=== PATIENT | male | born 1940 | race Caucasian/White ===

== ENCOUNTER → 2016-12-07 | Outpatient (CLI) | payer MEDICARE, OTHER ==
[~2016-12-07] MED LIST: AMLO10TA PO; ASPI-892 PO; CODE-54 PO; CPR250T PO; CYAN100053 IM; FISH OIL 1,2001 EAC1 PO; FURO40TA4 PO; HCT25T PO; MELO-198 PO; METF500T8 PO; NFNEB10T PO; ROSU10TA12 PO; TELM40TA PO
--- OUTSIDE RECORDS SUMMARY | 2016-12-07 08:23 | XMS REPORT | Continuity of Care Document ---
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 Medications Current Home Medications Medication Dose Units Route Directions Days/Qty Instructions Start Date Telmisartan 40 Mg 40 Mg Oral Daily 01/02/14 Nebivolol Hcl 10 Mg 10 Mg Oral Bedtime 01/02/14 Rosuvastatin Calcium 10 Mg 10 Mg Oral Bedtime 01/02/14 Meloxicam (Mobic) 7.5 Mg 7.5 Mg Oral Daily 01/02/14 Furosemide (Lasix) 40 Mg 40 Mg Oral Daily as needed for Edema PRN EDEMA 01/02/14 Hydrochlorothiazide 25 Mg 25 Mg Oral Daily 01/02/14 Metformin Hcl (Glucophage Xr) 500 Mg 500 Mg Oral Daily With Meal 03/13 Amlodipine Besylate 10 Mg 10 Mg Oral Daily 01/02/14 Aspirin 81 Mg 81 Mg Oral Daily 01/02/14 Start-3 Fatty Acids/Fish Oil 1 Each 1,200 Mg Oral Daily 01/02/14 Cyanocobalamin (Vitamin B 12 Injecting) 1,000 Mcg/Ml 1,000 Mcg Intramusc Monthly TAKES THE FIRST DAY OF EACH MONTH 01/02/14 Acetaminophen/Codeine 1 Tab 1-2 Tab Oral Give Every 4 Hrs On Schedule as needed for Pain 1 01/09/14 Ciprofloxacin Hcl 250 Mg 1 Tab Oral Twice A Day 3 Days 01/09/14 Social History Social History Problem Response Recorded Date/Time Recent Foreign Travel No 06/03/2016 8:29am Hospital Discharge Instructions No hospital discharge instructions. Plan of Care Prescriptions See Medication Section Functional Status No functional status results. Allergies, Adverse Reactions, Alerts Allergen Type Severity Reaction Status Last Updated indomethacin ([id number]) Allergy FAST HEARTRATE Active 01/02/14 tizanidine ([id number]) Allergy FACIAL SWELLING, FAST HEART RATE Active 01/02/14 atorvastatin ([id number]) Allergy FACIAL SWELLING Active 01/02/14 rofecoxib ([id number]) Allergy FACIAL SWELLING Active 01/02/14 Immunizations No immunization records. Vital Signs No known vital signs results. Results No known relevant diagnostic tests, laboratory data and/or discharge summary. Procedures No known history of procedures. Encounters Encounter Location Arrival/Admit Date Discharge/Depart Date Attending Provider Discharged Rec[facility]ring [facility] 06/03/16 8:30am 11:59pm JOSE ZIMMERMAN MD
== END ==
LOC: ONC 08:20
PROVIDERS: ATTEND Radiology Radiation Oncology
DX: C61 Malignant neoplasm of prostate (principal)
CPT/HCPCS: 36415; 84153

== ENCOUNTER 2017-06-06 08:38 | Outpatient (RCR) | payer MEDICARE, OTHER | END 2017-07-30 | disposition home or self-care (01) | LOC: ONC 08:38 | PROVIDERS: ATTEND Radiology Radiation Oncology | DX: C61 Malignant neoplasm of prostate (principal) | CPT/HCPCS: 36415; 84153 ==

== ENCOUNTER → 2017-12-09 | Outpatient (CLI) | payer MEDICARE, OTHER | LOC: EDSTATUS 07-31 08:29 → ONC 08:31 | PROVIDERS: ATTEND Radiology Radiation Oncology | DX: C61 Malignant neoplasm of prostate (principal) | CPT/HCPCS: 36415; 84153 ==

== ENCOUNTER → 2018-06-08 | Outpatient (CLI) | payer MEDICARE, OTHER | LOC: ONC 08:21 | PROVIDERS: ATTEND Radiology Radiation Oncology | DX: C61 Malignant neoplasm of prostate (principal) | CPT/HCPCS: 84153 ==

== ENCOUNTER → 2018-12-08 | Outpatient (CLI) | payer MEDICARE, OTHER | LOC: LAB 11:23 | PROVIDERS: ATTEND Radiology Radiation Oncology | DX: Z53.9 Procedure and treatment not carried out, unspecified reason (principal) ==

== ENCOUNTER → 2019-06-06 | Outpatient (CLI) | payer MEDICARE, OTHER | LOC: LAB 08:40 | PROVIDERS: ATTEND Radiology Radiation Oncology | DX: Z01.89 Encounter for other specified special examinations (principal) ==

== ENCOUNTER → 2019-12-07 | Outpatient (CLI) | payer MEDICARE, OTHER | LOC: LAB 08:26 | PROVIDERS: ATTEND Radiology Radiation Oncology | DX: Z01.89 Encounter for other specified special examinations (principal) | CPT/HCPCS: 36415; 84153 ==

== ENCOUNTER → 2020-06-06 | Outpatient (CLI) | payer MEDICARE, OTHER | LOC: ONC 08:18 | PROVIDERS: ATTEND Radiology Radiation Oncology | DX: C61 Malignant neoplasm of prostate (principal) | CPT/HCPCS: 84153 ==

== ENCOUNTER → 2020-11-13 | Outpatient (CLI) | payer MEDICARE, OTHER | LOC: ONC 08:28 | PROVIDERS: ATTEND Radiology Radiation Oncology | DX: C61 Malignant neoplasm of prostate (principal); Z53.9 Procedure and treatment not carried out, unspecified reason | CPT/HCPCS: 84153 ==

== ENCOUNTER → 2021-05-26 | Outpatient (CLI) | payer MEDICARE, OTHER | LOC: ONC 08:22 | PROVIDERS: ATTEND Radiology Radiation Oncology | DX: C61 Malignant neoplasm of prostate (principal) | CPT/HCPCS: 84153 ==

== ENCOUNTER → 2021-11-26 | Outpatient (CLI) | payer MEDICARE, OTHER | LOC: ONC 08:21 | PROVIDERS: ATTEND Radiology Radiation Oncology | DX: C61 Malignant neoplasm of prostate (principal) | CPT/HCPCS: 36415; 84153 ==

== ENCOUNTER → 2022-05-27 | Outpatient (CLI) | payer MEDICARE, OTHER | LOC: ONC 08:24 | PROVIDERS: ATTEND Radiology Radiation Oncology | DX: C61 Malignant neoplasm of prostate (principal) | CPT/HCPCS: 36415; 84153 ==

== ENCOUNTER → 2022-11-11 | Outpatient (CLI) | payer MEDICARE, OTHER | LOC: ONC 10:13 | PROVIDERS: ATTEND Radiology Radiation Oncology | DX: C61 Malignant neoplasm of prostate (principal) | CPT/HCPCS: 36415; 84153 ==

== ENCOUNTER → 2023-05-12 | Outpatient (CLI) | payer MEDICARE, OTHER | LOC: ONC 08:23 | PROVIDERS: ATTEND Radiology Radiation Oncology | DX: C61 Malignant neoplasm of prostate (principal) | CPT/HCPCS: 36415; 84153 ==